=== PATIENT | female | born 1995 | race Two or more races ===

== ENCOUNTER 2025-04-04 10:13 | Outpatient (CLI) | payer OTHER | END 2025-04-04 10:26 | disposition home or self-care (01) | LOC: PRENATAL 10:13 | PROVIDERS: ATTEND Obstetrics & Gynecology Maternal & Fetal Medicine | DX: O36.80X0 Pregnancy with inconclusive fetal viability, not applicable or unspecified (principal); Z36.82 Encounter for antenatal screening for nuchal translucency; Z14.8 Genetic carrier of other disease; Z3A.13 13 weeks gestation of pregnancy ==

== ENCOUNTER 2025-06-26 15:21 | Outpatient (CLI) | payer OTHER | END 2025-06-26 15:22 | disposition home or self-care (01) | LOC: PRENATAL 15:21 | PROVIDERS: ATTEND Obstetrics & Gynecology Maternal & Fetal Medicine | DX: O44.00 Complete placenta previa NOS or without hemorrhage, unspecified trimester (principal); O99.210 Obesity complicating pregnancy, unspecified trimester; O26.879 Cervical shortening, unspecified trimester; O28.3 Abnormal ultrasonic finding on antenatal screening of mother; Z3A.25 25 weeks gestation of pregnancy ==

== ENCOUNTER 2025-07-05 14:18 | Emergency (ER) | payer OTHER ==
[~2025-07-05] VITALS: Ht 170.2 cm; Wt 117.9 kg
[2025-07-05 15:31] VITALS: BP 111/65; O2SAT 100
[2025-07-05] MEDS ORDERED: PRENATA CHEWAB1 EACH PO (15:44)
[2025-07-05] MEDS ORDERED: ENDOMETRIN100 MG VG (15:47)
[2025-07-05] MEDS ORDERED: FAMOTIDINE/PF 20 MG/2 ML VIAL IV STA (16:05)
[2025-07-05] MEDS ORDERED: 0.9 % SODIUM CHLORIDE 1,000 ML IV STA (16:05)
[2025-07-05] MEDS ORDERED: ONDANSETRON HCL 2 MG/ML VIAL IV STA (16:05)
[2025-07-05] MEDS ORDERED: ONDANSETRON HCL 2 MG/ML VIAL ONE (16:16)
[2025-07-05] MEDS ORDERED: FAMOTIDINE/PF 20 MG/2 ML VIAL ONE (16:16)
[2025-07-05 16:51] LABS: BASO % 0.2 % (0.1-1.2); EOS # 0.00 (0.04-0.54); EOS % 0.0 % (0.7-7.0); LYMPH # 0.17 (1.18-3.74); LYMPH % 2.8 % (19.3-53.1); MEAN PLATELET VOLUME 10.00 fl (9.4-12.4); MONO # 0.74 (0.24-0.82); NEUT # 5.08 (1.56-6.13); NEUT % 84.0 % (34.0-71.1); RED CELL DISTRIBUTION WIDTH 12.4 % (11.6-14.4)
[2025-07-05 16:57] LABS: MONO % 12.3 % (4.7-12.5)
[2025-07-05 17:10] LABS: COVID-19 AG NEGATIVE (NEGATIVE)
[2025-07-05 18:43] LABS: BUN CREA RATIO 17.0 (7.0-25.0); CREATININE SERUM 0.52 mg/dL (0.55-1.02); GFR 141.45; GLUCOSE FASTING 85.0 mg/dL (65-100); OSMOLALITY SERUM 275.0 MOSM/KG (275-295)
[2025-07-05] MEDS ORDERED: ACETAMINOPHEN 500 MG GEL..CAP PO ONE ×2 (18:45→19:00)
== END 2025-07-05 20:48 | disposition home or self-care (01) ==
LOC: ER 14:18
PROVIDERS: General Practice
DX: Z33.1 Pregnant state, incidental (principal); Z3A.23 23 weeks gestation of pregnancy; K52.9 Noninfective gastroenteritis and colitis, unspecified; R11.2 Nausea with vomiting, unspecified; R50.9 Fever, unspecified; R11.10 Vomiting, unspecified; Z20.822 Contact with and (suspected) exposure to COVID-19

== ENCOUNTER 2025-07-19 07:01 | Outpatient (CLI) | payer OTHER ==
[~2025-07-19 07:01] MED LIST: ENDOMETRIN100 MG VG; PRENATA CHEWAB1 EACH PO
== END 2025-07-19 07:02 | disposition home or self-care (01) ==
LOC: PRENATAL 07:01
PROVIDERS: ATTEND Obstetrics & Gynecology Maternal & Fetal Medicine
DX: O26.842 Uterine size-date discrepancy, second trimester (principal); O26.872 Cervical shortening, second trimester; O28.3 Abnormal ultrasonic finding on antenatal screening of mother; O99.212 Obesity complicating pregnancy, second trimester; Z3A.27 27 weeks gestation of pregnancy

== ENCOUNTER 2025-08-29 09:29 | Outpatient (CLI) | payer OTHER | END 2025-08-29 09:30 | disposition home or self-care (01) | LOC: PRENATAL 09:29 | PROVIDERS: ATTEND Obstetrics & Gynecology Maternal & Fetal Medicine | DX: O26.843 Uterine size-date discrepancy, third trimester (principal); O36.8130 Decreased fetal movements, third trimester, not applicable or unspecified; O99.213 Obesity complicating pregnancy, third trimester; O26.873 Cervical shortening, third trimester; O28.3 Abnormal ultrasonic finding on antenatal screening of mother; Z3A.33 33 weeks gestation of pregnancy ==